=== PATIENT | female | born 1955 | race Caucasian/White ===

== ENCOUNTER → 2017-11-25 | Outpatient (CLI) | payer BC ==
--- NOTE | 2017-11-25 18:09 | US ---
EXAMINATION TYPE: US venous doppler duplex LE RT DATE OF EXAM: 11/25/2017 5:36 PM COMPARISON: NONE CLINICAL HISTORY: M79.671 R foot pain, M25.571 R ankle pain. Right leg pain and swelling surgery x 2 months ago. SIDE PERFORMED: Right TECHNIQUE: The lower extremity deep venous system is examined utilizing real time linear array sonog yvette with graded compression, doppler sonography and color-flow sonography. VESSELS IMAGED: External Iliac Vein (EIV) Common Femoral Vein Deep Femoral Vein Greater Saphenous Vein * Femoral Vein Popliteal Vein Small Saphenous Vein * Proximal Calf Veins (* superficial vessels) FINDINGS:Grayscale, color doppler, spectral doppler imaging performed of the deep veins of the lower extremities. There is normal flow, compressibility, vascular waveforms. IMPRESSION: NEGATIVE FOR DVT, RIGHT LOWER EXTREMITY.
== END | disposition home or self-care (01) ==
LOC: RADUSMAIN 17:16
PROVIDERS: ATTEND Orthopaedic Surgery
DX: M79.671 Pain in right foot (principal); M25.571 Pain in right ankle and joints of right foot; M79.661 Pain in right lower leg; R60.9 Edema, unspecified; Z47.89 Encounter for other orthopedic aftercare

== ENCOUNTER → 2018-12-31 | Day surgery (SDC) | payer BC ==
[2018-12-29 13:13] VITALS: BMI 42.5
[2018-12-31 14:15] VITALS: BP 159/75; PULSE 57; RESP 16; TEMP 97.8
--- NOTE | 2019-01-08 08:54 | P.PCN ---
Date of Procedure: 12/31/18 Procedure(s) Performed: BRIEF HISTORY: Patient is a 63-year-old, pleasant, white female scheduled for an esophageal manometry as a part of evaluation of GERD/chronic cough. She is being considered for antireflux surgery PROCEDURE PERFORMED:. High resolution impedance esophageal manometry PREOPERATIVE DIAGNOSIS: Chronic cough/gastroesophageal reflux disease/preoperative evaluation for antireflux surgery. PROCEDURE: After informed consent was obtained, the patient was brought into the endoscopy unit. The procedure was performed in endoscopy. The manometry catheter was passed from the external bolster and was gently advanced into the esophagus. It was gradually advanced into the stomach. Initially gastric baseline was achieved. Liquid and viscous lesions were used for swallowing. Recordings were performed. The study results were interpreted using Willits classification. The following are the study results. Results: 1. Mean IRP 0 mmHg. 2. Mean DCI 1842 mmHg.s.cm 3) Peristaltic contractions 100% 4) Simultaneous contractions 40% 5) Complete transit for liquids 10% 6) Complete transit with viscous 70% Interpretation The above esophageal manometry findings show normal recent activity involving the esophagus with slightly low lower esophageal sphincter pressures but no ev idence of esophageal dysmotility or esophageal achalasia
== END ==
LOC: ORWHC2ENDO 13:42
PROVIDERS: ATTEND Internal Medicine Gastroenterology
DX: K21.9 Gastro-esophageal reflux disease without esophagitis (principal); R05 Cough
CPT/HCPCS: 91037

== ENCOUNTER → 2020-07-10 | Outpatient (CLI) | payer BC ==
[2020-07-10 09:28] VITALS: BP 136/88; PULSE 75; RESP 16; TEMP 97.5
--- NOTE | 2020-07-10 09:45 | P.PAINCN ---
History of Present Illness - Reason for Consult Consult date: 07/10/20 - History of Present Illness Rusty is a 65-year-old female who presents today with a chief complaint of bilateral shoulder pain and arm pain. She reports pain in the trapezius muscles in both shoulders radiating to the top of the arms. There is no radiation beyond the top. She has some pain into the bicep muscle bilaterally. There is no numbness or tingling just pain. There is no sharp shooting pain radiating from the neck to the arm. There are no hand pain. There is no lower extremity weakness numbness or tingling. She reports his pain Came on a few months ago without any inciting event. She reports a started in the left shoulder now has moved to the right shoulder. She feels very limited in range of motion in the right arm compared to left. She is unable to raise her right arm above 90 secondary to stiffness and pain. She is about to start physical therapy tomorrow for her shoulders. MRI images have not been reviewed, reports from Dr. Mallory's notes have been dictated into this note. Review of Systems: Denies any New chest pain, short of breath, Nausea/vomitting, abdominal pain, bowel or bladder incontinence, or any overt new neurologic symptoms in his upper or lower extremities. Past Medical History Past Medical History: Asthma, GERD/Reflux, Hypertension, Musculoskeletal Disorder Additional Past Medical History / Comment(s): hiatal hernia History of Any Multi-Drug Resistant Organisms: None Reported Past Surgical History: Joint Replacement, Orthopedic Surgery Additional Past Surgical History / Comment(s): arthroscopy pa knees, left hip replacement,rt achilles tendon repair Past Anesthesia/Blood Transfusion Reactions: Motion Sickness, Postoperative Nausea & Vomiting (PONV) Past Psychological History: No Psychological Hx Reported Smoking Status: Former smoker Past Alcohol Use History: None Reported Additional Past Alcohol Use History / Comment(s): quit smoking 2003, smoked for 25 years- 1PPD Past Drug Use History: None Reported - Past Family History Sister(s) Family Medical History: Cancer Daughter(s) Family Medical History: Pulmonary Embolus Medications and Allergies Home Medications Medication Instructions Recorded Confirmed Type Potassium Chloride [Klor-Con 10] 10 meq PO QAM 06/27/15 07/07/20 History hydroCHLOROthiazide 25 mg PO QAM 06/27/15 07/07/20 History Fluticasone Propion/Salmeterol 1 inhalation PO BID 07/07/20 07/07/20 History [Wixela 250-50 Inhub] Lansoprazole [Prevacid] 30 mg PO DAILY 07/07/20 07/07/20 History Montelukast [Singulair] 10 mg PO DAILY 07/07/20 07/07/20 History Allergies Allergy/AdvReac Type Severity Reaction Status Date / Time No Known Allergies Allergy Verified 07/07/20 12:57 Physical Exam Vitals: Vital Signs Temp Pulse Resp BP Pulse Ox 07/10/20 09:25 97.5 F L 75 16 136/88 98 PHYSICAL EXAM: Constitutional: Awake and alert no distress, obese Cardiovascular exam: Regular rate, no lower extremity edema, palpable pulses bilaterally Respiratory exam: No audible wheezing, no accessory muscle usage Abdominal exam: Soft nontender Muscular skeletal exam: - Cervical spine: Forward flexed and rounded shoulders, mild tenderness to palpation over the trapezius muscles and shoulders bilaterally. Range of motion is not limited. Spurling is negative bilateral. Facet loading is negative bilaterally. Shoulder range of motion the right is significantly limited compared to left. Abduction is limited to less than 90. Internal rotation is limited significantly. Flexion and extension the shoulder significantly limited on the right compared to left. - Lumbar spine: Loss of lordosis, obese midline, nontender to palpation. Flexion and extension are preserved Neuro exam: Normal sensation bilateral upper and lower extremities. Deep tendon reflexes are 2+ bilaterally. Wu's is negative Psychiatric exam: Cooperative, good insight Results Results: MRI of the cervical spine as noted from Dr. Mallory's notes reports that an MRI of the left shoulder done on 06/13/2020 shows supraspinatus infraspinatus t endinosis with articular surface fraying and tiny partial-thickness tear involving the junction of insertional fibers. There is also subscapularis tendinosis. There is moderate glenohumeral degenerative arthritis with small joint effusion and synovitis. There is labral degeneration and fraying. Mild before meals joint degeneration. There is also mention of a cervical spine MRI from [facility] dated 04/01/[address] Mallory has read as multilevel disc disease worse at C3 4. Multiple herniations seen below cervical spine at T1 2 and 2G3. There are multiple areas of disc protrusion and near herniation of the cervical spine. No obvious cord compression. There is foraminal stenosis noted at C6-C7. Again this is from Dr. Mallory's notes. There are also x-rays [facility] which Dr. Mallory notes that there is moderate facet arthropathy bilaterally. There is stenosis of the left C5 6 C6 7 and C7-T1. On the right there is mild stenosis at C5 6 [id number]. Significant deterioration of C4-C5. Assessment and Plan Assessment: #1 rotator cuff tendinopathy #2 cervical degenerative disc disease #3 cervical spondylosis without myelopathy Plan: At this point I recommended she participate in physical therapy to improve her shoulder range of motion. I discussed with her that if her pain is not tolerable during the therapy session she can give us a call we will schedule her for right shoulder injection to improve her pain. Negative very clear that do believe she has some cervical spine pathology, I am unsure if that is causing her pain. At some point she may benefit from an EMG and nerve conduction study to evaluate if there is any cervical radicular component. At this point we will continue with physical therapy and Avastin given a call as needed. I have spent 36 minutes on patient care today. The time was used to review the medical records including relevant urine studies and Prescription history (MAPs), review of the available imaging, evaluation and examination of the patient, coordination of care with the medical staff and if applicable referring physicians, as well as creation of the medical record. PQRS Measure Charge Sheet PQRS Narrative: Smoking Status Former smoker Blood Pressure 136/88 Pain Intensity [Bilateral 6 Shoulder] Scale Used Numeric (1 - 10) Hx Alcohol Use (MH) Yes Home Medications: Ambulatory Orders Potassium Chloride [Klor-Con 10] 10 meq PO QAM 06/27/15 hydroCHLOROthiazide 25 mg PO QAM 06/27/15 Fluticasone Propion/Salmeterol [Wixela 250-50 Inhub] 1 inhalation PO BID 07/07/20 Lansoprazole [Prevacid] 30 mg PO DAILY 07/07/20 Montelukast [Singulair] 10 mg PO DAILY 07/07/20
== END ==
LOC: PNWHC3 09:14
PROVIDERS: ATTEND Hospitalist
DX: M77.8 Other enthesopathies, not elsewhere classified (principal); M50.30 Other cervical disc degeneration, unspecified cervical region; M47.812 Spondylosis without myelopathy or radiculopathy, cervical region; J45.909 Unspecified asthma, uncomplicated; K21.9 Gastro-esophageal reflux disease without esophagitis; I10 Essential (primary) hypertension; Z79.51 Long term (current) use of inhaled steroids; Z79.899 Other long term (current) drug therapy; Z87.891 Personal history of nicotine dependence
CPT/HCPCS: 99211

== ENCOUNTER → 2024-10-07 | Outpatient (CLI) | payer MEDICARE ==
--- NOTE | 2024-10-07 21:51 | US ---
EXAMINATION TYPE: US venous doppler duplex LE RT DATE OF EXAM: 10/07/2024 3:54 PM COMPARISON: NONE CLINICAL INDICATION: Female, 69 years old with history of R60.0 LOCALIZED EDEMA R LEG; Swelling in ri ght calf for over one year, patient states she has a lipoma and doctor wanted to make sure it was not cutting off blood supply. No history of DVT. TECHNIQUE: The lower extremity deep venous system is examined utilizing real time linear array sonog yvette with graded compression, doppler sonography and color-flow sonography. Grayscale, color doppler , spectral doppler imaging performed of the deep veins of the lower extremities FINDINGS: SIDE PERFORMED: Right VESSELS IMAGED: Common Femoral Vein Deep Femoral Vein Greater Saphenous Vein * Femoral Vein Popliteal Vein Small Saphenous Vein * Proximal Calf Veins (* superficial vessels) Right Leg: Negative for DVT; There is normal flow, compressibility, vascular waveforms. IMPRESSION: 1. Right lower extremity ultrasound negative for deep venous thrombosis. [facility], , 10/07/2024 9:49 PM
== END | disposition home or self-care (01) ==
LOC: RADUSWWP 15:23
PROVIDERS: ATTEND Emergency Medicine
DX: R60.0 Localized edema (principal)